=== PATIENT | male | born 1960 | race American Indian/Alaskan Native ===

== ENCOUNTER 2017-10-24 13:33 | Emergency (ER) | payer SELFPAY ==
[2017-10-24] MEDS ORDERED: ULTRAM PO ONE (17:45)
[2017-10-24] MEDS ORDERED: TORADOL IM ONE (17:49)
[2017-10-24 18:09] LABS: Basophils # (Auto) 0.1 K/mm3 (0.0-0.1); Basophils % (Auto) 0.5 % (0.0-1.8); Eosinophils # (Auto) 0.1 K/mm3 (0.0-0.4); Eosinophils % (Auto) 1.1 % (0.0-4.3); Hematocrit 50.2 % (35.5-45.6); Hemoglobin 17.3 gm/dl (11.8-15.2); Lymphocytes # (Auto) 2.6 K/mm3 (1.2-5.4); Lymphocytes % (Auto) 22.9 % (13.4-35.0); Mean Corpuscular HGB Conc 34 % (32-34); Mean Corpuscular Hemoglobin 31 pg (28-32); Mean Corpuscular Volume 90 fl (84-94); Monocytes # (Auto) 0.9 K/mm3 (0.0-0.8); Monocytes % (Auto) 7.8 % (0.0-7.3); Platelet Count 208 K/mm3 (140-440); Red Cell Distribution Width 13.5 % (13.2-15.2)
[2017-10-24 18:15] LABS: BUN/Creatinine Ratio 14; Blood Urea Nitrogen 11 mg/dL (9-20); Calcium 9.2 mg/dL (8.4-10.2); Hemolysis Index 95
--- NOTE | 2017-10-24 18:48 | Emergency Department Report ---
Chief Complaint: Extremity Injury, Lower Stated Complaint: RIGHT SHOULDER PAIN Time Seen by Provider: 10/24/17 17:43 - HPI History of Present Illness: The patient is a 57-year-old male presents for evaluation of right shoulder pain. The patient reports right shoulder pain for the past one week, achy in quality, moderate in severity, exacerbated with movement of the right arm at the shoulder joint. He says that his pain began at the lifting a heavy object. The patient denies fever, blunt trauma to the shoulder, paresthesias or motor deficit in the right arm, chills, night sweats, color change or redness, or neck pain. - Exam Vital Signs: Vital Signs 10/24/17 10/24/17 13:57 18:24 Temperature 98.3 F Pulse Rate 66 Respiratory 18 20 Rate Blood Pressure 158/84 O2 Sat by Pulse 96 Oximetry MSE screening note: Focused history and physical exam performed. Due to findings the following was ordered: ED Medical Decision Making - Lab Data Result diagrams: 10/24/17 17:48 10/24/17 17:48 ED Disposition for MSE Condition: Stable
--- NOTE | 2017-10-24 19:13 | XRay Report ---
FINAL REPORT PROCEDURE: XR SHOULDER 2+V RT TECHNIQUE: Two view right shoulder HISTORY: right shoulder pain COMPARISON: No prior studies are available for comparison. FINDINGS: Degenerative changes of the right shoulder acromioclavicular glenohumeral joints. Patchy atelectasis or infiltrate right lung base. No definite rib fracture however not well studied. Right lung base atelectasis or streaky infiltrate. Follow-up chest and rib series may be of use IMPRESSION: No acute fracture seen.
--- NOTE | 2017-10-24 19:36 | Emergency Department Report ---
Upper Extremity - [facility] Chief Complaint: Extremity Injury, Lower Stated Complaint: RIGHT SHOULDER PAIN Time Seen by Provider: 10/24/17 17:43 Upper Extremity: Left Shoulder Symptoms: Yes Pain with Movement (pain with shoulder abduction), No Deformity, No Limited Range of Movement, No Numbness, No Weakness, No Swelling, No Bruising /Ecchymosis Other History: 57-year-old male with past medical history none presents complaining of right-sided shoulder pain ongoing for approximately 5 days. Patient denies any direct trauma and states that he was helping a friend move around heavy furniture 4-5 days ago. Denies any falls. Denies any fever or chills. Denies any erythema or overlying cellulitis of the right shoulder. ED Review of Systems ROS: Stated complaint: RIGHT SHOULDER PAIN Other details as noted in HPI ED Past Medical Hx - Past Medical History Previous Medical History?: No - Surgical History Past Surgical History?: No - Social History Smoking Status: Never Smoker Substance Use Type: None - Medications Home Medications: Home Medications Medication Instructions Recorded Confirmed Last Taken Type Acetaminophen/Codeine [Tylenol 1 tab PO Q6H PRN #12 tab 10/24/17 Unknown Rx /Codeine # 3 tab] Albuterol Sulfate [Ventolin Hfa] 1 puff IH Q4H PRN #1 hfa.aer.ad 10/24/17 Unknown Rx Azithromycin [Zithromax Z-RAJWINDER] 250 mg PO QDAY #6 tablet 10/24/17 Unknown Rx Naproxen [Naprosyn] 500 mg PO BID PRN #20 tablet 10/24/17 Unknown Rx Upper Extremity Exam - Exam General: Vital signs noted. No distress. Alert and acting appropriately. ED Course Vital Signs 10/24/17 10/24/17 13:57 18:24 Temperature 98.3 F Pulse Rate 66 Respiratory 18 20 Rate Blood Pressure 158/84 O2 Sat by Pulse 96 Oximetry ED Medical Decision Making - Lab Data Result diagrams: 10/24/17 17:48 10/24/17 17:48 - Medical Decision Making A/P: Right shoulder pain, right shoulder arthralgia, possible PNA 1-no clinical signs of cellulitis overlying right shoulder joint. Range of motion active and passive is intact but painful to patient. Distal pulses and distal sensation intact right upper extremity. 2-case discussed with Dr. Hubbard will also examine patient initially. 3-x-ray labs and vital signs are unremarkable 4- Critical care attestation.: If time is entered above; I have spent that time in minutes in the direct care of this critically ill patient, excluding procedure time. ED Disposition Clinical Impression: Pulmonary infiltrates on CXR Right shoulder pain Qualifiers: Chronicity: acute Qualified Code(s): M25.511 - Pain in right shoulder Disposition: DC- TO HOME OR SELFCARE Is pt being admited?: No Does the pt Need Aspirin: No Condition: Stable Instructions: Community-acquired Pneumonia (ED), Arthralgia (ED), Shoulder Sprain (ED) Prescriptions: Acetaminophen/Codeine [Tylenol /Codeine # 3 tab] 1 tab PO Q6H PRN #12 tab PRN Reason: Pain Albuterol Sulfate [Ventolin Hfa] 1 puff IH Q4H PRN #1 hfa.aer.ad PRN Reason: Cough Azithromycin [Zithromax Z-RAJWINDER] 250 mg PO QDAY #6 tablet Naproxen [Naprosyn] 500 mg PO BID PRN #20 tablet PRN Reason: Pain Referrals: [facility] [Provider Group] - 3-[address] [facility] [Outside] - 3-5 Days [facility] [Outside] - 3-5 Days Forms: Work/School Release Form(ED)
[2017-10-24 19:46] VITALS: BP 156/86
--- NOTE | 2017-10-24 21:35 | XRay Report ---
FINAL REPORT EXAM: XR CHEST ROUTINE 2V HISTORY: possible right PNA on shoulder xray, pt has cough+ TECHNIQUE: PA and lateral views of the chest PRIORS: None. FINDINGS: Lines, tubes, and devices: N/A Lungs and pleura: Trachea is normal in position. Mild linear atelectasis or fibrosis in each lung base is noted laterally. Lungs are otherwise clear of consolidation, pleural effusion, vascular congestion, or pneumothorax. Cardiomediastinal silhouette: Cardiac and mediastinal silhouettes are unremarkable. Other: Bony structures are intact. IMPRESSION: No acute cardiopulmonary process seen. Mild linear atelectasis or fibrosis in each lung base laterally.
== END 2017-10-24 22:11 | disposition home or self-care (01) ==
LOC: ED 13:33
DX: R91.8 Other nonspecific abnormal finding of lung field (principal); M25.511 Pain in right shoulder
CPT/HCPCS: 36415; 71046; 73030; 80048; 85025; 96372; 99283; J1885